=== PATIENT | male | born 1995 | race Caucasian/White ===

== ENCOUNTER 2023-02-03 21:23 | Emergency (ER) | payer OTHER, BC ==
[2023-02-03] MEDS ORDERED: Lidocaine 1% 10 ML MDV INJECT ONE (22:05)
== END 2023-02-03 22:50 | disposition home or self-care (01) ==
LOC: EDBD → JD.ED 21:23 → MERGE 21:23 → JD.ED 22:50
DX: S01.81XA Laceration without foreign body of other part of head, initial encounter (principal); V28.49XA Other motorcycle driver injured in noncollision transport accident in traffic accident, initial encounter; Y92.410 Unspecified street and highway as the place of occurrence of the external cause
CPT/HCPCS: 12013; 99282; 99283; J3490